=== PATIENT | male | born 2000 | race Two or more races ===

== ENCOUNTER 2022-08-24 15:05 | Emergency (ER) | payer MEDICAID, OTHER ==
[~2022-08-24] VITALS: Ht 180.3 cm; Wt 84.0 kg
[2022-08-24] MEDS ORDERED: ALBUTEROL SULF 2.5 MG/0.5ML(0.5%) NEB SOLN NEB ONE ×2 (15:45→17:45)
[2022-08-24] MEDS ORDERED: DexAMETHasone 4 MG TAB PO ONE ×2 (15:45)
[2022-08-24] MEDS ORDERED: IPRATROPIUM BROM 0.5 MG/2.5ML INH SOL NEB ONE (15:45)
[2022-08-24 16:36] LABS: Hemoglobin 13.8 g/dL (13.5-17.5); Mean Corpuscular Hgb Conc. 33.2 g/dL (32.0-36.0)
[2022-08-24 16:38] LABS: Hematocrit 41.5 % (41.0-53.0); Mean Corpuscular Hemoglobin 26.8 pg (28.0-32.0); Mean Corpuscular Volume 80.6 fL (80.0-100.0); Red Blood Cells 5.15 10^6/uL (4.5-5.90)
[2022-08-24 16:53] LABS: Band Neutrophils % (manual) 0; Basophils % (manual) 0 (0.0-2.0); Blast Cells 0; Eosinophils % (manual) 0 (0-7); Metamyelocytes % 0; Myelocytes % 0; Promyelocytes % 0
[2022-08-24 16:56] LABS: Albumin 2.6 g/dL (3.4-5.0); BUN/Creatinine Ratio 7.8; Calcium 9.3 mg/dL (8.5-10.1); Potassium 4.2 mmol/L (3.5-5.1)
[2022-08-24 16:58] LABS: Bilirubin, Total 0.5 mg/dL (0.2-1.0); Total Protein 7.5 g/dL (6.4-8.2)
[2022-08-24] MEDS ORDERED: SODIUM CHLORIDE 0.9% 500 ML IV ONE (17:00)
[2022-08-24] MEDS ORDERED: CEFTRIAXONE SODIUM 2 GM in D5W 5% 50 ML IV ONE (17:00)
[2022-08-24 17:24] LABS: Lymphocytes % (manual) 4 (10.0-50.0); Monocytes % (manual) 7 (0-12); Reactive Lymphocytes 2
[2022-08-24] MEDS ORDERED: IOHEXOL 300 MG/ML 100ML BOTTLE IJ ONE (17:29)
[2022-08-24] MEDS ORDERED: cefTRIAXone 1GM/50ML D5W 100 ML IV ONE (20:06)
[2022-08-24] MEDS ORDERED: SODIUM CHLORIDE 0.9% 1,000 ML IV ONE ×3 (20:15→20:30)
[2022-08-24] MEDS ORDERED: VANCOMYCIN 1GM/250ML 250 ML IV ONE (20:30)
[2022-08-25 00:04] LABS: Urine Bacteria NONE SEEN /hpf (None Seen); Urine Blood Negative /uL (Negative); Urine Specific Gravity 1.012 (1.001-1.035); Urine WBC <1 /hpf (0 - 3)
[2022-08-25 05:16] VITALS: BP 125/62
== END 2022-08-25 07:32 | disposition left against medical advice (07) ==
LOC: ER 15:10
DX: J18.9 Pneumonia, unspecified organism (principal); J45.909 Unspecified asthma, uncomplicated
CPT/HCPCS: 36415; 36600; 71045; 71260; 74177; 80053; 81001; 82805; 83605; 85007; 85027; 87040; 94640; 96361; 96365; 96367; 99285; J0696; J3370; J7030; J7060; J7644; J8540; Q9967

== ENCOUNTER 2024-02-20 15:09 | Emergency (ER) | payer MEDICAID ==
[~2024-02-20] VITALS: Ht 180.3 cm; Wt 99.5 kg
[~2024-02-20 15:09] MED LIST: PANT40TA2 PO
[2024-02-20 15:57] LABS: Urine Bacteria None Seen /hpf (None Seen)
[2024-02-20 16:10] LABS: Urine Blood Negative /uL (Negative); Urine Clarity Clear (Clear); Urine Color Colorless (Yellow); Urine Protein, UAD Negative (Negative); Urine Specific Gravity 1.004 (1.001-1.035); Urine Urobilinogen Normal (Negative); Urine WBC <1 /hpf (0 - 3)
[2024-02-20 16:34] LABS: Basophils # (auto) 0.1 10 ^3/uL (0-0.2); Basophils % (auto) 0.6 % (0.0-2.0); Eosinophils # (auto) 0.1 10 ^3/uL (0-0.8); Eosinophils % (auto) 1.4 % (0.0-7.0); Hematocrit 45.6 % (41.0-53.0); Hemoglobin 15.5 g/dL (13.5-17.5); Lymphocytes % (auto) 31.4 % (10.0-50.0); Mean Corpuscular Hemoglobin 28.5 pg (28.0-32.0); Mean Corpuscular Hgb Conc. 33.9 g/dL (32.0-36.0); Mean Corpuscular Volume 84.1 fL (80.0-100.0); Monocytes # (auto) 0.8 10 ^3/uL (0-1.3); Monocytes % (auto) 8.3 % (0.0-12.0); Neutrophils # (auto) 5.5 10 ^3/uL (1.6-8.6); Neutrophils % (auto) 58.3 % (37.0-80.0); Red Blood Cells 5.42 10^6/uL (4.5-5.90); White Blood Cell 9.4 10^3/uL (4.4-10.8)
[2024-02-20 16:44] LABS: Chloride 105 mmol/L (98-107); Potassium 4.5 mmol/L (3.5-5.1); Sodium 138 mmol/L (136-145)
[2024-02-20 16:45] LABS: Anion Gap 4 (5-15); Calcium 10.2 mg/dL (8.7-10.4); Carbon Dioxide 29 mmol/L (20-30)
[2024-02-20 16:50] LABS: BUN/Creatinine Ratio 9.4 (10.0-20.0); Blood Urea Nitrogen 10 mg/dL (9-23); Glucose 88 mg/dL (74-106); Lipase 31 U/L (12-53)
[2024-02-20] MEDS: PROCHLORPERAZINE MALEATE 10 MG TAB PO ONE (17:16)
[2024-02-20] MEDS: PANTOPRAZOLE 40 MG TAB PO ONE (17:16)
[2024-02-20] MEDS ORDERED: PANT40TA2 PO (17:17)
[2024-02-20] MEDS ORDERED: ZOFR4T PO (17:17)
[2024-02-20 17:46] VITALS: BP 126/81; PULSE 87; RESP 16; TEMP 98.1; O2SAT 97
== END 2024-02-20 17:18 | disposition home or self-care (01) ==
LOC: ER 15:11
DX: F12.188 Cannabis abuse with other cannabis-induced disorder (principal); J45.909 Unspecified asthma, uncomplicated
CPT/HCPCS: 36415; 74176; 80048; 81001; 83690; 85025; 99284; Q0164